=== PATIENT | male | born 1965 | race Caucasian/White ===

== ENCOUNTER 2018-10-19 09:28 | Day surgery (SDC) | payer BC ==
[2018-10-19 09:34] LABS: Absolute Lymphocytes (CBC) 1.7 K/uL (0.7-4.9); Absolute Monocytes 0.8 K/uL (0.1-1.3); Basophils % 0.5 % (0-1.3); Eosinophils % 0.9 % (0-4.4); Hematocrit 43.9 % (39.6-49.0); Lymphocytes % 14.7 % (15.3-44.8); MPV 8.5 fL (7.6-11.3); RBC Red Blood Cell Count 4.82 M/uL (4.33-5.43)
[2018-10-19 09:49] LABS: Potassium 4.8 mmol/L (3.5-5.1)
[2018-10-19] MEDS ORDERED: BUPIVACAINE 0.5% PF 10 ML VIAL ONE (09:50)
[2018-10-19] MEDS ORDERED: PROPOFOL 200 MG/20 ML VIAL IV ONE (10:00)
[2018-10-19] MEDS ORDERED: MIDAZOLAM HCL 2 MG/2 ML INJ ONE (10:00)
[2018-10-19] MEDS ORDERED: LIDOCAINE 2% MPF 5 ML VIAL ONE (10:00)
[2018-10-19] MEDS ORDERED: FENTANYL CITR 100 MCG/2 ML ONE ×2 (10:00→10:48)
[2018-10-19] MEDS ORDERED: DEXAMETHASONE 10 MG/ML VIAL ONE (10:00)
--- OUTSIDE RECORDS SUMMARY | 2018-10-19 10:01 | XMS REPORT ---
:1965 [facility] Address [address] [place] [address] Dr. Albarran [address] [place] [id number] Care Team Providers Name Role Phone Unavailable Unavailable Unavailable Problems This patient has no known problems. Allergies, Adverse Reactions, Alerts This patient has no known allergies or adverse reactions. Medications This patient has no known medications.
[2018-10-19] MEDS ORDERED: Ringers Lactate 1,000 ML IV ONE (10:03)
[2018-10-19] MEDS ORDERED: CEFOXITIN/SWI 1gm 1 GM/10 ML SYR ONE (10:05)
--- NOTE | 2018-10-19 10:55 | RAD REPORT ---
EXAM DESCRIPTION: RAD - Chest Pa And Lat (2 Views) - 10/19/2018 9:23 am CLINICAL HISTORY: PREOP Chest pain. COMPARISON: No comparisons FINDINGS: The lungs are clear. The heart is normal in size. No displaced fractures. IMPRESSION: No acute or concerning finding suspected.
[2018-10-19] MEDS: HYDROMORPHONE HCL 1 MG/ML INJ ONE ×4 (11:09→11:32)
[2018-10-19] MEDS ORDERED: PROMETHAZINE 25 MG/ML VIAL ONE (11:15)
[2018-10-19] MEDS ORDERED: HYDROCODONE/APAP 7.5/325 MG TAB ONE (12:00)
--- NOTE | 2018-10-19 17:13 | EKG ---
Test Date: 2018-10-19 Test Time: 09:16:16 Package Clerk: LEILANI MEASUREMENT RESULTS: Intervals: Rate: 70 ND: 130 QRSD: 96 QT: 420 QTc: 453 [place]: P: 21 ND: 130 QRS: 25 T: 22 INTERPRETIVE STATEMENTS: Sinus rhythm with premature atrial complexes with aberrant conduction Otherwise normal ECG No previous ECG available for comparison Electronically Signed On 10-19-18 17:11:58 CDT by Jeffrey Gloria
--- NOTE | 2018-10-19 23:38 | OP ---
Date of Procedure: 10/19/2018 Surgeon: Gareth Jim MD Preoperative Diagnosis: Perirectal abscess. Postoperative Diagnosis: Perirectal abscess. Procedure: Exam under anesthesia; rigid proctoscopy; incision, drainage, and debridement of perirect al abscess. Estimated Blood Loss: Minimal. Specimen: Pus. Findings: As above. Anesthesia: General. Complications: None. Disposition: The patient tolerated the procedure well in stable condition, taken to Recovery in good general condition. Procedure In Detail: The patient was brought to the OR, placed in supine position. General anesthes ia was begun. The patient was placed in the lithotomy position, prepped and draped in the usual ster ile fashion. Exam under anesthesia revealed at approximately the 12 and 1 o'clock position of the an us a large area of induration with central fluctuance just to the left of the median raphe. A rigid proctoscopy did not reveal any intraluminal evidence of disease or fistula that could be identified. The patient had Marcaine 0.5% infiltrated locally and then 15-blade was used to make a 4 cm incision and subcutaneous tissue was divided. Minimal amount of pus encountered. Cultures done. Wound irri gated. Bleeding controlled with cautery. Necrotic tissue debrided and then wound packed with a wet- to-dry normal saline dressing change. The patient tolerated the procedure in stable condition and ta vladimir to Recovery in good general condition. Discharge Note: The patient will go to day surgery and home when stable. Disposition: Home. Condition: Stable. Discharge Instructions: Resume home meds and diet. Activity as tolerated. No heavy lifting. Sitz baths daily following wet-to-dry normal saline dressing changes. Antibiotics as ordered. Tylenol No . 3 one tablet p.o. q.4 p.r.n. pain. Home health if needed. Follow up in my office in 2 weeks, call for appointment. MAHIN/BLU Voice ID: [id number] Report ID: [id number]
== END 2018-10-19 13:13 | disposition home or self-care (01) ==
LOC: OR 09:28
PROVIDERS: ATTEND Surgery
PROC: 0D9P3ZZ Drainage of Rectum, Percutaneous Approach (ICD-10-PCS; principal; 2018-10-19 10:00)
DX: K61.1 Rectal abscess (principal)
CPT/HCPCS: 36415; 71046; 80048; 85025; 87070; 87075; 87205; 93005; J1100; J1170; J2250; J2550; J2704; J3010

== ENCOUNTER 2022-01-20 11:00 | Day surgery (SDC) | payer BC ==
[2022-01-15 13:44] LABS: Absolute Lymphocytes (CBC) 2.6 K/uL (0.7-4.9); Hematocrit 49.8 % (39.6-49.0); Lymphocytes % 24.1 % (15.3-44.8); MCV 91.3 fL (80-100); MPV 8.4 fL (7.6-11.3); RBC Red Blood Cell Count 5.46 M/uL (4.33-5.43)
[2022-01-15 13:58] LABS: Potassium 4.4 mmol/L (3.5-5.1)
[2022-01-15 14:00] LABS: Protime INR 1.04
--- NOTE | 2022-01-15 14:02 | RAD REPORT ---
EXAM DESCRIPTION: RAD - Chest Pa And Lat (2 Views) - 01/15/2022 1:33 pm CLINICAL HISTORY: pre-helper animal laboratory procedure COMPARISON: Two view chest October 2018 TECHNIQUE: Frontal and lateral views of the chest were obtained. FINDINGS: The lungs are clear of mass or focal infiltrate. No failure or volume overload seen. Inter stitial pattern is not clearly different from comparison. Mediastinal and hilar regions are similar to comparison peer heart size has enlarged since prior im aging, now upper normal. Upper lobe vasculature within normal limits. No pleural effusion or pneumothorax seen. No acute bony finding noted. No aortic abnormality. IMPRESSION: Cardiac silhouette is upper normal in size, increased from 2019 comparison. No acute ibrahima lure or volume overload findings. No acute lung parenchymal process.
[2022-01-15 15:11] LABS: SARS-CoV-2 Antigen Rapid Res Negative (Negative)
--- NOTE | 2022-01-16 13:07 | EKG ---
Test Date: 2022-01-15 Test Time: 13:34:47 Program Eligibility Specialist: HAYLIE MEASUREMENT RESULTS: Intervals: Rate: 107 IN: QRSD: 86 QT: 314 QTc: 419 [place]: P: IN: QRS: 32 T: 21 INTERPRETIVE STATEMENTS: Atrial fibrillation with rapid ventricular response Abnormal ECG Compared to ECG 10/19/2018 09:16:16 Sinus rhythm no longer present Atrial premature complex(es) no longer present Aberrant conduction of supraventricular beat(s) no longer present Electronically Signed On 01-16-22 13:04:43 CDT by Derick Lawler
[~2022-01-20 11:00] MED LIST: ATROPINE SULF 1 MG/10 ML SYR IV ONE; FLUMAZENIL 0.1 MG/ML (5 mL VIAL) IV ONE; METOPROLOL TARTRATE 5 MG/5 ML INJ IV ONE; NA CHLORIDE 0.9% 500 ML ONE
[2022-01-20] MEDS ORDERED: MIDAZOLAM HCL 2 MG/2 ML INJ ONE ×2 (11:16→11:17)
--- NOTE | 2022-01-20 12:45 | OP ---
Date of Procedure: 01/20/2022 Surgeon: VAL CLARK Procedure Performed: Synchronized electrocardioversion using 200 joules. Indication: Atrial fibrillation. Description Of Procedure: The patient has been taken anticoagulant Eliquis for more than 6 weeks wit hout interruption. He was brought into the recovery area and after risks, benefits, and alternatives were explained, he agreed to the cardioversion. Then, we gave 5 mg of Versed and the patient contin ued to be awake. We gave 2 mg more to achieve adequate moderate sedation and then a synchronized jasvir ctrocardioversion using 200 joules was done successfully converting the rhythm into sinus rhythm. Conclusions: Successful synchronized electrocardioversion into normal sinus rhythm. Plan: Continue Cardizem and Eliquis. Follow up with me in the office in 4 weeks. SR/MODL Voice ID: [id number] Report ID: [id number]
[2022-01-20 13:14] VITALS: BP 125/79; O2SAT 98
--- NOTE | 2022-01-21 08:17 | EKG ---
Test Date: 2022-01-20 Test Time: 12:06:17 Electrostatic Powder Coating Technician: HAYLIE MEASUREMENT RESULTS: Intervals: Rate: 73 CO: 156 QRSD: 96 QT: 452 QTc: 497 [place]: P: 16 CO: 156 QRS: 7 T: 18 INTERPRETIVE STATEMENTS: Normal sinus rhythm Prolonged QT Abnormal ECG Compared to ECG 01/15/2022 13:34:47 Prolonged QT interval now present Atrial fibrillation no longer present Electronically Signed On 01-21-22 08:12:48 CDT by Hank Alonso
== END 2022-01-20 13:10 | disposition home or self-care (01) ==
LOC: CCL 11:00
PROVIDERS: ATTEND Internal Medicine
DX: I48.91 Unspecified atrial fibrillation (principal); I50.20 Unspecified systolic (congestive) heart failure; Z79.01 Long term (current) use of anticoagulants; Z87.891 Personal history of nicotine dependence; Z20.822 Contact with and (suspected) exposure to COVID-19
CPT/HCPCS: 93005 ×2; 85025; 80048; 36415; 85610; 85730; 71046; 92960; 87811; J2250 ×2; J7040